=== PATIENT | female | born 1950 | race Hispanic/Latino ===

== ENCOUNTER 2016-10-23 20:29 | Emergency (ER) | payer OTHER ==
[2016-10-23 20:37] VITALS: BP 127/71; PULSE 77; RESP 16; TEMP 98.6; O2SAT 98
--- NOTE | 2016-10-23 21:50 | ED PDOC ---
Upper Extremity Pain/Injury Time Seen by Provider: 10/23/16 20:56 Chief Complaint (Nursing): Upper Extremity Problem/Injury Chief Complaint (Provider): Right elbow injury History Per: Patient History/Exam Limitations: no limitations Onset/Duration Of Symptoms: Hrs (x4) Additional Complaint(s): Katherine Benitez is a 66 year old female, with no past medical history, who presents to the emergency department complaining of right elbow pain onset for 4 hours. Patient states she fell today at work, landing on her elbow and knees. Patient denies any numbness or tingling. No further medical complaints. PMD: None provided Past Medical History Reviewed: Historical Data, Nursing Documentation, Vital Signs Vital Signs: Last Vital Signs Temp 98.6 F 10/23/16 20:35 Pulse 77 10/23/16 20:35 Resp 16 10/23/16 20:35 BP 127/71 10/23/16 20:35 Pulse Ox 98 10/23/16 20:35 - Medical History PMH: No Chronic Diseases - Family History Family History: States: Unknown Family Hx - Home Medications Home Medications: Ambulatory Orders Medication Instructions Recorded Ibuprofen [Motrin] 400 mg PO Q6 #30 tab 10/23/16 - Allergies Allergies/Adverse Reactions: Allergies Allergy/AdvReac Type Severity Reaction Status Date / Time No Known Allergies Allergy Verified 10/23/16 20:34 Review of Systems ROS Statement: Except As Marked, All Systems Reviewed And Found Negative Musculoskeletal: Positive for: Arm Pain (Right elbow tender to touch). Negative for: Other (numbness or tingling) Physical Exam - Reviewed Nursing Documentation Reviewed: Yes Vital Signs Reviewed: Yes - Physical Exam Appears: Positive for: Well, Non-toxic, No Acute Distress Head Exam: Positive for: ATRAUMATIC, NORMAL INSPECTION, NORMOCEPHALIC Skin: Positive for: Normal Color, Warm, DRY Eye Exam: Positive for: Normal appearance Respiratory: Positive for: Normal Breath Sounds. Negative for: Respiratory Distress Extremity: Positive for: Normal ROM (Full ROM on RT arm), Tenderness (Contusion on right elbow noted), Other (good pronation and supination, neurovascular intact). Negative for: Deformity Neurologic/Psych: Positive for: Alert, Oriented - ECG O2 Sat by Pulse Oximetry: 98 (RA) Pulse Ox Interpretation: Normal Medical Decision Making Medical Decision Making: Initial Impression: RT elbow contusion Initial Plan: --Elbow right 3 views routine [RAD] -X-ray shows mild hematoma but no bony injury. Patient request a sling, ice pack , ibuprofen for pain control, follow up with specialist. Scribe Attestation: Documented by Renato Buck, acting as a scribe for Nikki MUNGUIA. Provider Scribe Attestation: All medical record entries made by the Scribe were at my direction and personally dictated by me. I have reviewed the chart and agree that the record accurately reflects my personal performance of the history, physical exam, medical decision making, and the department course for this patient. I have also personally directed, reviewed, and agree with the discharge instructions and disposition. Disposition - Clinical Impression Clinical Impression: Contusion Counseled Patient/Family Regarding: Studies Performed, Diagnosis, Need For Followup - Disposition Referrals: [facility] [Outside] Disposition: Routine/Home Disposition Time: 23:57 Condition: STABLE Prescriptions: Ibuprofen [Motrin] 400 mg PO Q6 #30 tab Instructions: Contusion in Adults (ED) Forms: [employer] (French)
--- NOTE | 2016-10-24 12:46 | RAD ---
PROCEDURE: Radiographs of the right elbow. HISTORY: elbow injury COMPARISON: No prior. FINDINGS: BONES: Normal. No fracture. 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 SOFT TISSUES: Mild infiltration changes seen within the chief soft tissues proximal forearm. JOINT EFFUSION: None. OTHER FINDINGS: None. IMPRESSION: No evidence of acute displaced fracture nor dislocation. Mild infiltration changes seen within the dorsal soft tissues proximal forearm. Mild DJD.
== END 2016-10-23 22:02 | disposition home or self-care (01) ==
LOC: H.ER 20:29
DX: S50.01XA Contusion of right elbow, initial encounter (principal); W19.XXXA Unspecified fall, initial encounter; Y99.0 Civilian activity done for income or pay